=== PATIENT | female | born 1970 | race Caucasian/White ===

== ENCOUNTER → 2021-01-24 | Outpatient (CLI) | payer OTHER | LOC: SJCVCIMAG 11:54 | PROVIDERS: ATTEND Internal Medicine | DX: R00.0 Tachycardia, unspecified (principal); R00.2 Palpitations ==

== ENCOUNTER → 2021-02-22 | Outpatient (CLI) | payer OTHER | LOC: CAT 09:06 | PROVIDERS: ATTEND Internal Medicine | DX: Z13.6 Encounter for screening for cardiovascular disorders (principal); I25.10 Atherosclerotic heart disease of native coronary artery without angina pectoris; E78.00 Pure hypercholesterolemia, unspecified ==